=== PATIENT | female | born 1930 | race Caucasian/White ===

== ENCOUNTER 2017-12-10 14:46 | Emergency (ER) | payer MEDICARE ==
[~2017-12-10] VITALS: Ht 157.5 cm; Wt 101.0 kg
[~2017-12-10 14:46] MED LIST: ALEN70 PO; AMBIEN; AMLO5 PO; ASPI81CH PO; BIOTIN PO; BIOTIN2500 MCG PO; BISA5EC PO; BLOOD PRESSURE MED; BP MED; CALCA500CH PO; CODLIVC PO; CRANBERRY PO; Colace100 MG PO; DOCU100 PO; Desyrel150 MG PO; ERGO50000 PO; FAMO20 PO; FERR325 PO; FURO20 PO; HYDACE5 PO; HYDMOR2 PO; HYDR1TAB94 PO; IBUP600 PO; IBUPROFEN PO; LAVAP17G PO; LEVFLO250 PO; LIDO5TP TOP; LOSA50 PO; LOSHYD PO; MAGCIT300 PO; Norco 5-325 Ta1 EACH PO; OMEG1CAP30 PO; OXYACE5T PO; OXYC5 PO; POTASSIUM GLUC500 MG PO; POTASSIUM PO; PROACE100 PO; PROM25 PO; Percocet 5-3251 EACH PO; RALO60 PO; RXOXYACE PO; SENN187 PO; TAMS.4ER PO; TOLT2ER PO; TRAZ50 PO; Tylenol325 MG PO; VITAMIN B125000 MCG PO; VITAMIN D-3 PO; VITAMINS; Zofran Odt4 MG SL; Zofran Odt8 MG SL
[2017-12-10 15:24] LABS: Source, Urine Catheter
[2017-12-10 15:31] LABS: Bilirubin, Urine Neg (Neg); Blood, Urine 5+ (Neg); Glucose Qualitative, Urine Neg (Neg); Ketones, Urine 2+ (Neg); Leukocyte Esterase, Urine 1+ (Neg); Nitrite, Urine Neg (Neg); Protein, Urine 2+ (Neg); Specific Gravity, Urine 1.025 (1.003-1.022); Urobilinogen, Urine NORM (Normal)
[2017-12-10 15:37] LABS: Appearance, Urine Hazy (Clear); Color, Urine Yellow (P-Yellow)
[2017-12-10 15:39] LABS: Bacteria Few /hpf; Hyaline Casts 0-2 /lpf (0-2); Red Blood Cells, Urine TNTC /hpf (0-2); Squamous Epithelial Cells Few /hpf (Few)
[2017-12-10 15:40] LABS: Amorphous Light (0-Heavy)
[2017-12-10 15:48] LABS: BASOPHILS ABSOLUTE AUTO 0.02 K/mm3 (0.00-0.23); BASOPHILS PERCENT AUTO 0 % (0-2); EOSINOPHILS ABSOLUTE AUTO 0.02 K/mm3 (0.00-0.68); EOSINOPHILS PERCENT AUTO 0 % (0-6); Hemoglobin 13.1 g/dL (11.5-16.0); IMMATURE GRAN ABSOLUTE AUTO 0.03 K/mm3 (0.00-0.10); IMMATURE GRAN PERCENT AUTO 0 % (0-1); LYMPHOCYTES ABSOLUTE AUTO 0.94 K/mm3 (0.84-5.20); LYMPHOCYTES PERCENT AUTO 9 % (21-46); MONOCYTES ABSOLUTE AUTO 0.38 K/mm3 (0.16-1.47); MONOCYTES PERCENT AUTO 4 % (4-13); Mean Corpuscular Volume 100 fL (80-100); NEUTROPHILS ABSOLUTE AUTO 8.87 K/mm3 (1.96-9.15); NEUTROPHILS PERCENT AUTO 86 % (41-73); Platelet Count 211 K/mm3 (150-400); RDW Coefficient Variation 12.4 % (11.7-14.2); RDW Standard Deviation 46.3 fL (35.1-46.3); White Blood Cell Count 10.26 K/mm3 (4.00-11.30)
[2017-12-10 16:24] LABS: Alanine Aminotransfer (ALT/SGP 17 U/L (12-78); Albumin, Blood 3.4 g/dL (3.4-5.0); Albumin/Globulin Ratio 0.9 (0.8-1.8); Alk Phos 70 U/L (50-136); Anion Gap 16 mmol/L (6-16); Aspartate Aminotrans (AST/SGOT 25 U/L (12-37); Bilirubin, Total 0.5 mg/dL (0.1-1.0); Blood Urea Nitrogen 25 mg/dL (8-24); Bun/Creatinine Ratio 32.6 (12.0-20.0); CO2, Blood 18 mmol/L (21-32); Calcium, Blood 9.2 mg/dL (8.5-10.1); Chloride, Blood 104 mmol/L (98-108); Creatinine, Blood 0.77 mg/dL (0.40-1.00); Globulin, Blood 3.7 g/dL (2.2-4.0); Glomerular Filtration Rate >60 (60-); Glucose, Blood 152 mg/dL (70-99); Potassium, Blood 3.8 mmol/L (3.5-5.5); Sodium, Blood 138 mmol/L (136-145); Total Protein, Blood 7.1 g/dL (6.4-8.2); Troponin I <0.015 ng/mL (0.000-0.040)
[2017-12-10] MEDS ORDERED: FAMO20 PO (17:07)
[2017-12-10] MEDS ORDERED: POTASSIUM CHLO20 MEQ PO (17:07)
== END 2017-12-10 20:04 | disposition short-term general hospital (02) ==
LOC: ER 14:46
PROVIDERS: Emergency Medicine
DX: N13.2 Hydronephrosis with renal and ureteral calculous obstruction (principal); R11.2 Nausea with vomiting, unspecified; E78.5 Hyperlipidemia, unspecified; I10 Essential (primary) hypertension; F17.200 Nicotine dependence, unspecified, uncomplicated
CPT/HCPCS: 36415; 71045; 74176; 80053; 81001; 83690; 84484; 85025; 87086; 93005; 93010; 96361; 96374; 96375; 96376; 99285; J1170; J1885; J2550; J7030; P9612

== ENCOUNTER 2018-02-06 20:30 | Emergency (ER) | payer MEDICARE ==
[~2018-02-06] VITALS: Ht 149.9 cm; Wt 36.3 kg
[~2018-02-06 20:30] MED LIST changes: +POTASSIUM CHLO20 MEQ PO
== END 2018-02-07 00:27 | disposition home or self-care (01) ==
LOC: ER 20:30
DX: M54.6 Pain in thoracic spine (principal); G89.29 Other chronic pain; I10 Essential (primary) hypertension; Z91.09 Other allergy status, other than to drugs and biological substances; Z88.5 Allergy status to narcotic agent; Z79.899 Other long term (current) drug therapy; Z87.891 Personal history of nicotine dependence
CPT/HCPCS: 99283

== ENCOUNTER 2018-12-01 13:16 | Emergency (ER) | payer MEDICARE ==
[~2018-12-01] VITALS: Ht 157.5 cm; Wt 43.1 kg
[2018-12-01] MEDS ORDERED: Norco 5-325 Ta1 EACH PO (16:19)
[2018-12-01] MEDS ORDERED: Colace100 MG PO (16:19)
== END 2018-12-01 17:06 | disposition home or self-care (01) ==
LOC: ER 13:16
DX: S22.089A Unspecified fracture of T11-T12 vertebra, initial encounter for closed fracture (principal); M25.552 Pain in left hip; I10 Essential (primary) hypertension; K21.9 Gastro-esophageal reflux disease without esophagitis; M81.0 Age-related osteoporosis without current pathological fracture; Z88.5 Allergy status to narcotic agent; Z91.09 Other allergy status, other than to drugs and biological substances; Z79.899 Other long term (current) drug therapy; Z87.442 Personal history of urinary calculi; Z90.49 Acquired absence of other specified parts of digestive tract; Z87.891 Personal history of nicotine dependence; W01.0XXA Fall on same level from slipping, tripping and stumbling without subsequent striking against object, initial encounter
CPT/HCPCS: 72100; 73502; 99283-25

== ENCOUNTER 2018-12-07 20:54 | Emergency (ER) | payer MEDICARE ==
[~2018-12-07] VITALS: Ht 165.1 cm; Wt 65.8 kg
== END 2018-12-07 23:02 | disposition home or self-care (01) ==
LOC: ER 20:54
DX: M25.552 Pain in left hip (principal); M54.6 Pain in thoracic spine; I10 Essential (primary) hypertension; Z88.5 Allergy status to narcotic agent; Z91.09 Other allergy status, other than to drugs and biological substances; Z79.899 Other long term (current) drug therapy; Z87.891 Personal history of nicotine dependence
CPT/HCPCS: 99283

== ENCOUNTER 2019-01-13 10:59 | Emergency (ER) | payer MEDICARE ==
[~2019-01-13] VITALS: Ht 157.5 cm; Wt 46.3 kg
[2019-01-13] MEDS ORDERED: HYDR1TAB94 PO (15:24)
== END 2019-01-13 17:06 | disposition home or self-care (01) ==
LOC: ER 10:59
DX: S52.572A Other intraarticular fracture of lower end of left radius, initial encounter for closed fracture (principal); S00.83XA Contusion of other part of head, initial encounter; S80.02XA Contusion of left knee, initial encounter; W18.30XA Fall on same level, unspecified, initial encounter; I10 Essential (primary) hypertension; K21.9 Gastro-esophageal reflux disease without esophagitis; F03.90 Unspecified dementia, unspecified severity, without behavioral disturbance, psychotic disturbance, mood disturbance, and anxiety; Z88.5 Allergy status to narcotic agent; Z88.8 Allergy status to other drugs, medicaments and biological substances; Z79.899 Other long term (current) drug therapy
CPT/HCPCS: 29105; 70450; 72125; 73030; 73090; 73110; 73562-LT; 96372-59; 96374-59; 99284-25; J1170; J1630; J3010

== ENCOUNTER 2019-03-27 18:12 | Emergency (ER) | payer MEDICARE ==
[~2019-03-27] VITALS: Ht 157.5 cm; Wt 53.5 kg
[2019-03-29] MEDS ORDERED: Norco 5-325 Ta1 EACH PO (22:05)
== END 2019-03-27 20:13 | disposition home or self-care (01) ==
LOC: ER 18:12
DX: M54.6 Pain in thoracic spine (principal); G89.29 Other chronic pain; W18.30XA Fall on same level, unspecified, initial encounter; Z88.5 Allergy status to narcotic agent; Z88.8 Allergy status to other drugs, medicaments and biological substances; I10 Essential (primary) hypertension
CPT/HCPCS: 99283

== ENCOUNTER 2019-03-29 18:38 | Inpatient (IN) | payer MEDICARE ==
[~2019-03-29] VITALS: Ht 157.5 cm; Wt 38.7 kg
[2019-03-29 19:18] LABS: BASOPHILS ABSOLUTE AUTO 0.01 K/mm3 (0.00-0.23); BASOPHILS PERCENT AUTO 0 % (0-2); EOSINOPHILS ABSOLUTE AUTO 0.02 K/mm3 (0.00-0.68); EOSINOPHILS PERCENT AUTO 0 % (0-6); Hematocrit 38.6 % (33.0-51.0); Hemoglobin 12.5 g/dL (11.5-16.0); IMMATURE GRAN ABSOLUTE AUTO 0.03 K/mm3 (0.00-0.10); IMMATURE GRAN PERCENT AUTO 0 % (0-1); LYMPHOCYTES ABSOLUTE AUTO 1.18 K/mm3 (0.84-5.20); LYMPHOCYTES PERCENT AUTO 12 % (21-46); MONOCYTES PERCENT AUTO 6 % (4-13); Mean Corpuscular HGB Conc 32.4 g/dL (31.5-36.5); Mean Corpuscular Volume 96 fL (80-100); Mean Platelet Volume 9.8 fL (9.1-12.4); NEUTROPHILS ABSOLUTE AUTO 7.88 K/mm3 (1.96-9.15); NEUTROPHILS PERCENT AUTO 81 % (41-73); Platelet Count 269 K/mm3 (150-400); RDW Coefficient Variation 13.3 % (11.7-14.2); RDW Standard Deviation 47.2 fL (35.1-46.3); Red Blood Cell Count 4.03 M/mm3 (3.80-5.20); White Blood Cell Count 9.72 K/mm3 (4.00-11.30)
[2019-03-29 19:36] LABS: Alanine Aminotransfer (ALT/SGP 32 U/L (12-78); Albumin, Blood 3.3 g/dL (3.4-5.0); Alk Phos 74 U/L (50-136); Anion Gap 12 mmol/L (6-16); Aspartate Aminotrans (AST/SGOT 42 U/L (12-37); Blood Urea Nitrogen 39 mg/dL (8-24); Bun/Creatinine Ratio 43.7 (12.0-20.0); CO2, Blood 28 mmol/L (21-32); Calcium, Blood 8.5 mg/dL (8.5-10.1); Chloride, Blood 96 mmol/L (98-108); Creatinine, Blood 0.89 mg/dL (0.40-1.00); Globulin, Blood 3.3 g/dL (2.2-4.0); Glomerular Filtration Rate >60 (60-); Glucose, Blood 101 mg/dL (70-99); Potassium, Blood 2.2 mmol/L (3.5-5.5); Sodium, Blood 136 mmol/L (136-145); Total Protein, Blood 6.6 g/dL (6.4-8.2)
[2019-03-29] MEDS ORDERED: Norco 5-325 Ta1 EACH PO ×2 (22:05)
--- NOTE | 2019-03-30 05:16 | NUR ---
SHIFT SUMMARY PATIENT IS ALERT AND CONFUSED. PT IS UNSURE WHY SHE IS HERE AND OR HOW SHE GOT HERE. PATIENT HAS A CAST ON HER LEFT LOWER ARM. PT COMPLAINED OF BACK PAIN AND WAS MEDICATED WITH TYLENOL. IT WAS REPORTED THAT PT LIVES AT HOME BY HERSELF, AND HER DAUGHTER HAS BEEN COMING IN TO HELP PT. STILL NEED A STOOL SAMPLE AND URINE SAMPLE. VITALS HAVE BEEN STABLE. PATIENT HAS HAD NO VOMITING OR DIARRHEA DURING SHIFT.
[2019-03-30 05:32] LABS: Anion Gap 8 mmol/L (6-16); Blood Urea Nitrogen 31 mg/dL (8-24); Bun/Creatinine Ratio 35.8 (12.0-20.0); CO2, Blood 30 mmol/L (21-32); Calcium, Blood 8.5 mg/dL (8.5-10.1); Chloride, Blood 102 mmol/L (98-108); Creatinine, Blood 0.87 mg/dL (0.40-1.00); Glomerular Filtration Rate >60 (60-); Glucose, Blood 77 mg/dL (70-99); Potassium, Blood 3.2 mmol/L (3.5-5.5); Sodium, Blood 140 mmol/L (136-145)
[2019-03-30 08:05] LABS: Source, Urine Catheter
[2019-03-30 08:09] LABS: Bilirubin, Urine Neg (Neg); Blood, Urine 3+ (Neg); Glucose Qualitative, Urine Neg (Neg); Ketones, Urine 1+ (Neg); Leukocyte Esterase, Urine 3+ (Neg); Nitrite, Urine Neg (Neg); Protein, Urine 2+ (Neg); Specific Gravity, Urine 1.015 (1.003-1.022); Urobilinogen, Urine NORM (Normal)
[2019-03-30 09:24] LABS: Appearance, Urine Hazy (Clear); Color, Urine Yellow (P-Yellow); White Blood Cells, Urine 50-100 /hpf (0-5)
[2019-03-30 09:25] LABS: Bacteria Few /hpf; Renal Epithelial Few /hpf (0-Rare); Squamous Epithelial Cells Few /hpf (Few); Transitional Epithelial Cells Few /hpf (0-Rare)
[2019-03-30 11:58] LABS: Adenovirus F 40/41 Not Detected (NOT DETECT); Astrovirus Not Detected (NOT DETECT); Campylobacter Sp Not Detected (NOT DETECT); Cryptosporidium Not Detected (NOT DETECT); Cyclospora Cayetanensis Not Detected (NOT DETECT); E. Coli O157 Not Detected (NOT DETECT); Entamoeba Histolytica Not Detected (NOT DETECT); Enteroaggregative E. coli-EAEC Not Detected (NOT DETECT); Enteropathogenic E. coli-EPEC Not Detected (NOT DETECT); Enterotoxigenic E. coli-ETEC Not Detected (NOT DETECT); Giardia Lamblia Not Detected (NOT DETECT); Norovirus GI/GII Not Detected (NOT DETECT); Plesiomonas Shigelloides Not Detected (NOT DETECT); Rotavirus A Not Detected (NOT DETECT); Salmonella Sp Not Detected (NOT DETECT); Sapovirus Not Detected (NOT DETECT); Shiga Toxin-prod E. coli-STEC Not Detected (NOT DETECT); Shigella/Enteroin E. coli-EIEC Not Detected (NOT DETECT); Vibrio Cholerae Not Detected (NOT DETECT); Vibrio Sp Not Detected (NOT DETECT); Yersinia Enterocolitica Not Detected (NOT DETECT)
--- NOTE | 2019-03-30 16:07 | NUR ---
Patient is lying in bed and alert. Patient has moments of confusion mixed with solid moments of engagement and awareness. Patient never got the fact that we are in [place] but understood that her back, arm and stomach have been affected by a fall. Patient was able to tell me that her lindsay is important to her and that she would appreciate prayer. I gladly provided prayer and patient voiced appreciation for it. I will continue to remain available to patient and family.
--- NOTE | 2019-03-30 17:50 | NUR ---
PT. VERY CONFUSED TO WHERE SHE IS OR WHERE SHE LIVES, THINKS IT 1969 AND SHE DROVE HER SELF TO THE HOSPITAL, SAYS SHES STAYING IN A MOTEL WITH A BUNCH OF HER FRIENDS. FORGETS SHE HAS EATEN AFTER SHES HAD HER MEALS. PT. HAS HAD NUMEROUS LOOSE STOOLS TODAY WHICH HAS TESTED POSITIVE FOR C-DIFF. HAS BEEN NOTIFIED AND MIKKI CEBALLOS ORDERED. SHE HAS SET OF THE BED ALARM SEVERAL TIMES , IS UNABLE TO REMEBER TO USE THE CALL LIGHT.
--- NOTE | 2019-03-31 06:45 | NUR ---
SHIFT SUMMARY PATIENT IS ALERT AND CONFUSED, STATES SHE DOES NOT KNOW WHERE SHE IS OR HOW SHE GOT HERE. REORIENTED PATIENT ON LOCATION AND WHY SHE IS HERE. PATIENT IS COOPERATIVE AND FOLLOWS DIRECTIONS APPROPRIATELY. PATIENT IS A SBA TO BS. ON TELE SR AT 69 PER MLT. PT WAS CONTINENT ALL NIGHT AND HAD ONE BOWEL MOVEMENT. ATE CRACKERS THROUGHOUT THE NIGHT. VITALS STABLE. MEDICATED FOR PAIN ONCE.
[2019-03-31 08:22] LABS: Anion Gap 8 mmol/L (6-16); Blood Urea Nitrogen 24 mg/dL (8-24); Bun/Creatinine Ratio 30.5 (12.0-20.0); CO2, Blood 23 mmol/L (21-32); Calcium, Blood 7.9 mg/dL (8.5-10.1); Chloride, Blood 111 mmol/L (98-108); Creatinine, Blood 0.79 mg/dL (0.40-1.00); Glomerular Filtration Rate >60 (60-); Glucose, Blood 96 mg/dL (70-99); Magnesium, Blood 1.7 mg/dL (1.6-2.4); Potassium, Blood 4.1 mmol/L (3.5-5.5); Sodium, Blood 142 mmol/L (136-145)
--- NOTE | 2019-03-31 11:20 | NUR ---
RECTAL TUBE PLACED R/T ONGOING DIAHRREA AND REDDENED SKIN IN ALEJANDRO AND ANAL AREA. PT. TOLERATED WELL.
--- NOTE | 2019-03-31 19:05 | NUR ---
PT. STILL HAVING DIARRHEA RECTAL TUBE PLACED. PT VERY CONFUSED AND FORGETFUL. KEEPS TRYING TO GET UP TO USE THE BSC, EXPLAIN TO HER EACH TIME WHY SHE CAN'T, SAYS OKAY BUT FORGETS AND TRIES TO GET UP AGAIN IN A FEW MINUTES. TRIES TO PULL OUT RECTAL TUBE OCCASSIONALY. PT. NO LONGER HAS IV ACCESS AND SAID LONG SHE IS EATING AND DRINKING THEY CAN BE LEFT OUT.
--- NOTE | 2019-03-31 21:52 | NUR ---
RECTAL TUBE PT CONTINUALLY GETTING UPSET STATING THAT SHE HAS TO HAVE A BOWEL MOVEMENT. EXPLAINED TO HER THAT IT FEELS LIKE IT BECAUSE OF RECTAL TUBE. PT VERY CONFUSED. WHEN GETTING UP TO BSC TO URINATE PT PUSED OUT RECTAL TUBE. THERE WAS NO OUTPUT IN THE RECTAL TUBE SO FAR THIS SHIFT SO LEFT IT OUT FOR THE TIME BEING. WILL REINSERT IF PT BEGINS TO HAVE LARGE AMOUNTS OF DIARRHEA AGAIN.
--- NOTE | 2019-04-01 05:38 | NUR ---
SHIFT SUMMARY PT PLEASANTLY CONFUSED. BED ALARM ON FOR SAFETY. PT SETS OFF WHEN NEEDING TO USE THE RESTROOM. SHE DOES NOT CALL APPROPRIATELY. RECTAL TUBE UPSETTING PT AND VERY LITTLE STOOL IN COLLECTION BAG. PT PUSHED RECTAL TUBE OUT. THIS NURSE DECIDED TO TRIAL LEAVING IT OUT THIS EVENING. PT ONLY HAD ONE BOWEL MOVEMENT THIS EVENING AND BECAME MUCH LESS AGITATED ONCE RECTAL TUBE WAS REMOVED. PT REPORTED BACK PN. MEDICATED X 1 W/ 1 TAB NORCO. TELEMETRY READING SR 75. OTHERWISE NO ACUTE CHANGES. VSS. WILL CONTINUE TO MONITOR AND REPORT TO DAY RN.
[2019-04-01 06:14] LABS: Anion Gap 6 mmol/L (6-16); Blood Urea Nitrogen 21 mg/dL (8-24); Bun/Creatinine Ratio 27.6 (12.0-20.0); CO2, Blood 26 mmol/L (21-32); Calcium, Blood 8.3 mg/dL (8.5-10.1); Chloride, Blood 109 mmol/L (98-108); Creatinine, Blood 0.76 mg/dL (0.40-1.00); Glomerular Filtration Rate >60 (60-); Glucose, Blood 85 mg/dL (70-99); Potassium, Blood 4.2 mmol/L (3.5-5.5); Sodium, Blood 141 mmol/L (136-145)
[2019-04-01] MEDS ORDERED: Acetaminophen325 M1 PO ×2 (09:42)
[2019-04-01] MEDS ORDERED: Anti-Diarrheal2 MG PO ×2 (09:43)
[2019-04-01] MEDS ORDERED: Vsl#3 Capsule1 EACH PO ×2 (09:43)
--- NOTE | 2019-04-01 10:49 | NUR ---
pt discharged PT DISCHARGED, FAMILY AT THE BEDSIDE VEBALIZED UNDERSTANDING OF THE DC INSTRUCTIONS, THE PT APPEARED TO BE BREATHING EASILY ON RA THE PTS PRESCRIPTIONS WERE FAXED TO [facility] REQUESTED, THE PT WAS TRANSFERED VIA WHEELCHAIR ACCOMPANIED BY THE GATE AGENT AND HER FAMILY
[2019-04-02] MEDS ORDERED: IBUP600 PO (17:48)
[2019-04-02] MEDS ORDERED: Norco 5-325 Ta1 EACH PO (17:48)
== END 2019-04-01 10:41 | disposition home or self-care (01) | DRG 641 ==
LOC: ER 18:38 → MEDS 18:39 → ER 18:39 → MEDS 18:39 → ENPENDDIS 04-01 09:06 → MEDS 04-01 10:41
PROVIDERS: Emergency Medicine; Internal Medicine; Nurse Practitioner Acute Care; ADMIT Internal Medicine
DX: E87.6 Hypokalemia (principal); F03.90 Unspecified dementia, unspecified severity, without behavioral disturbance, psychotic disturbance, mood disturbance, and anxiety; I10 Essential (primary) hypertension; E86.0 Dehydration; R19.7 Diarrhea, unspecified
CPT/HCPCS: 36415; 71045; 80048; 80053; 81001; 83690; 83735; 84132; 85025; 87086; 87324; 87507; 93005; 93010; 96365; 96375; 99285-25; A9270-GY; J1650; J2405; J3475; J3480; J7030; J7050

== ENCOUNTER 2019-04-02 15:58 | Emergency (ER) | payer MEDICARE ==
[~2019-04-02] VITALS: Ht 157.5 cm; Wt 46.3 kg
[~2019-04-02 15:58] MED LIST changes: +Acetaminophen325 M1 PO; +Anti-Diarrheal2 MG PO; +Vsl#3 Capsule1 EACH PO
[2019-04-02] MEDS ORDERED: IBUP600 PO (17:48)
[2019-04-02] MEDS ORDERED: Norco 5-325 Ta1 EACH PO (17:48)
== END 2019-04-02 18:30 | disposition home or self-care (01) ==
LOC: ER 15:58
DX: M54.6 Pain in thoracic spine (principal); G89.29 Other chronic pain; Z79.899 Other long term (current) drug therapy; I10 Essential (primary) hypertension; Z87.891 Personal history of nicotine dependence
CPT/HCPCS: 99283; A9270-GY